=== PATIENT | female | born 1970 | race Caucasian/White ===

== ENCOUNTER 2017-03-01 11:40 | Emergency (ER) | payer MEDICAID ==
[2017-03-01 14:22] LABS: BASOPHIL % 0.6 % (0-2); PLATELET COUNT 318 x10^3mcL (130-400)
[2017-03-01 14:27] LABS: CALCIUM 8.2 mg/dL (8.5-10.1); CHLORIDE SERUM 106 mmol/L (98-107); CREATININE SERUM 0.6 mg/dL (0.6-1.0); GFR1 > 60 mL/min; GLUCOSE SERUM 86 mg/dL (74-106); POTASSIUM SERUM 3.7 mmol/L (3.5-5.1); SODIUM SERUM 140 mmol/L (136-145)
[2017-03-01 14:32] LABS: ALKALINE PHOSPHATASE 93 U/L (46-116); ALT/SGPT 18 U/L (14-59); AST/SGOT 12 U/L (15-37); BILIRUBIN TOTAL 0.4 mg/dL (0.20-1.00); TOTAL PROTEIN, SERUM 7.1 g/dL (6.4-8.2)
[2017-03-01 14:33] LABS: ALBUMIN 3.2 g/dL (3.4-5.0)
[2017-03-01 18:05] VITALS: BP 107/60
== END 2017-03-01 18:05 | disposition home or self-care (01) ==
LOC: ED 11:40
PROVIDERS: Emergency Medicine
DX: J20.9 Acute bronchitis, unspecified (principal); Z86.2 Personal history of diseases of the blood and blood-forming organs and certain disorders involving the immune mechanism
CPT/HCPCS: 36415; 83880; 85378; J7613; J7644; Q0092

== ENCOUNTER 2018-09-06 15:13 | Emergency (ER) | payer MEDICAID ==
[~2018-09-06] VITALS: Ht 152.4 cm; Wt 89.8 kg
[2018-09-06 15:34] VITALS: Ht 152.4 cm; Wt 89.8 kg
[2018-09-06 18:32] VITALS: BP 144/78
== END 2018-09-06 18:32 | disposition home or self-care (01) ==
LOC: ED 15:13
DX: J20.9 Acute bronchitis, unspecified (principal); R03.0 Elevated blood-pressure reading, without diagnosis of hypertension; Z86.2 Personal history of diseases of the blood and blood-forming organs and certain disorders involving the immune mechanism
CPT/HCPCS: J7613

== ENCOUNTER 2019-01-11 14:18 | Emergency (ER) | payer MEDICAID ==
[~2019-01-11] VITALS: Ht 157.5 cm; Wt 91.2 kg
[2019-01-11 14:22] VITALS: Ht 157.5 cm; Wt 91.2 kg
[2019-01-11 15:56] VITALS: BP 129/75
== END 2019-01-11 16:24 | disposition home or self-care (01) ==
LOC: ED 14:18
DX: R51 Headache (principal); R11.0 Nausea; R20.2 Paresthesia of skin
CPT/HCPCS: J3030

== ENCOUNTER 2019-09-14 15:14 | Emergency (ER) | payer MEDICAID, SELFPAY ==
[~2019-09-14] VITALS: Ht 160 cm; Wt 94.3 kg
[2019-09-14 15:28] VITALS: BP 132/79; Ht 160 cm; Wt 94.3 kg
== END 2019-09-14 17:16 | disposition home or self-care (01) ==
LOC: ED 15:14
DX: U07.1 COVID-19 (principal); Z86.2 Personal history of diseases of the blood and blood-forming organs and certain disorders involving the immune mechanism
CPT/HCPCS: Q0092; U0003-CS

== ENCOUNTER 2020-01-10 14:32 | Emergency (ER) | payer MEDICAID ==
[~2020-01-10] VITALS: Ht 160 cm; Wt 96.8 kg
[2020-01-10 14:52] VITALS: Ht 160 cm; Wt 96.8 kg
[2020-01-10 16:18] LABS: CALCIUM 8.1 mg/dL (8.5-10.1); CARBON DIOXIDE 25.5 mmol/L (21-32); CHLORIDE SERUM 104 mmol/L (98-107); CREATININE SERUM 0.5 mg/dL (0.6-1.0); GFR1 > 60 mL/min; GLUCOSE SERUM 112 mg/dL (74-106); POTASSIUM SERUM 3.7 mmol/L (3.5-5.1); SODIUM SERUM 136 mmol/L (136-145)
[2020-01-10 16:22] LABS: BASOPHIL % 0.3 % (0-2); PLATELET COUNT 292 x10^3mcL (130-400)
[2020-01-10 16:23] LABS: RED CELL DISTRIBUTION WIDTH 18.2 % (11.5-14.5)
[2020-01-10 17:31] LABS: UA SPECIFIC GRAVITY >=1.030 (1.005-1.035); microscopic required? YES; urine erythrocyte 2+ (NEGATIVE)
[2020-01-10 17:39] LABS: T4(THYROXINE) 8.5 ug/dL (4.7-13.3)
[2020-01-10 19:26] VITALS: BP 128/67
== END 2020-01-10 19:26 | disposition home or self-care (01) ==
LOC: ED 14:32
PROVIDERS: Emergency Medicine
DX: N93.8 Other specified abnormal uterine and vaginal bleeding (principal); D25.9 Leiomyoma of uterus, unspecified; D64.9 Anemia, unspecified; I10 Essential (primary) hypertension

== ENCOUNTER 2020-03-23 17:56 | Emergency (ER) | payer MEDICAID ==
[~2020-03-23] VITALS: Ht 162.6 cm; Wt 96.6 kg
[2020-03-23 18:16] VITALS: Ht 162.6 cm; Wt 96.6 kg
[2020-03-23 19:46] LABS: microscopic required? YES; urine erythrocyte 1+ (NEGATIVE)
[2020-03-23 19:48] LABS: BASOPHIL % 1.6 % (0.2-1.3); PLATELET COUNT 292 x10^3mcL (179-408)
[2020-03-23 19:49] LABS: RED CELL DISTRIBUTION WIDTH 19.7 % (12.3-17.7)
[2020-03-23 20:01] LABS: CALCIUM 8.7 mg/dL (8.5-10.1); CARBON DIOXIDE 30.4 mmol/L (21-32); CHLORIDE SERUM 104 mmol/L (98-107); CREATININE SERUM 0.6 mg/dL (0.6-1.0); GFR1 > 60 mL/min; GLUCOSE SERUM 98 mg/dL (74-106); POTASSIUM SERUM 3.7 mmol/L (3.5-5.1); SODIUM SERUM 137 mmol/L (136-145)
[2020-03-23 22:30] VITALS: BP 153/72
== END 2020-03-23 23:05 | disposition home or self-care (01) ==
LOC: ED 17:56
PROVIDERS: Emergency Medicine
DX: N39.0 Urinary tract infection, site not specified (principal)
CPT/HCPCS: 82962